=== PATIENT | male | born 1995 | race Caucasian/White ===

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

== ENCOUNTER 2017-01-10 16:44 | Emergency (ER) | payer OTHER ==
[2017-01-10 16:54] VITALS: BP 124/72
--- NOTE | 2017-01-10 17:17 | UC ---
Respiratory Complaint HPI - HPI Summary HPI Summary: Pt c/o cough, nasal congestion, sore throat X 4 weeks. - History of Current Complaint Chief Complaint: UCRespiratory Stated Complaint: CHEST/SINUS CONGESTION SORE THROAT Time Seen by Provider: 01/10/17 17:05 Hx Obtained From: Patient Onset/Duration: Gradual Onset, Lasting Weeks - 4, Still Present Timing: Constant Severity Initially: Mild Severity Currently: Mild Character: Cough: Nonproductive Aggravating Factors: Deep Breaths, Recumbent Position Alleviating Factors: Nothing Associated Signs And Symptoms: Positive: URI, Nasal Congestion - Risk Factors Pulmonary Embolism Risk Factors: Smoking Cardiac Risk Factors: Smoking Tuberculosis Risk Factors: Smoking - Allergies/Home Medications Allergies/Adverse Reactions: Allergies Allergy/AdvReac Type Severity Reaction Status Date / Time No Known Allergies Allergy Verified 01/10/17 16:54 Home Medications: Home Medications Dextromethorphan-Phenylephrine [Day Time Multi-Symptom Co 10-5-325 mg/15Ml] 1 liq PO DAILY 01/10/17 [History Confirmed 01/10/17] PMH/Surg Hx/FS Hx/Imm Hx Previously Healthy: Yes - Surgical History Surgical History: None - Family History Known Family History: Positive: Cardiac Disease - Social History Occupation: Employed Full-time Lives: With Family Alcohol Use: None Substance Use Type: Excessive Caffeine Smoking Status (MU): Light Every Day Tobacco Smoker Have You Smoked in the Last Year: Yes Cessation Counseling: Counseled 3+Min - 10 Min - Immunization History Vaccination Up to Date: Yes Review of Systems Constitutional: Negative Skin: Negative Eyes: Negative ENT: Sore Throat Respiratory: Cough Cardiovascular: Negative Gastrointestinal: Negative Genitourinary: Negative Motor: Negative Neurovascular: Negative Musculoskeletal: Negative Neurological: Negative Psychological: Negative Is Patient Immunocompromised?: No All Other Systems Reviewed And Are Negative: Yes Physical Exam Triage Information Reviewed: Yes Appearance: Well-Appearing Vital Signs: Initial Vital Signs Temp 99.6 F 01/10/17 16:51 Pulse 79 01/10/17 16:51 Resp 14 01/10/17 16:51 BP 124/72 01/10/17 16:51 Pulse Ox 99 01/10/17 16:51 Vital Signs Reviewed: Yes Eye Exam: Normal ENT Exam: Other ENT: Positive: Nasal congestion Dental Exam: Normal Neck exam: Normal Respiratory Exam: Normal Cardiovascular Exam: Normal Musculoskeletal Exam: Normal Neurological Exam: Normal Psychological Exam: Normal Skin Exam: Normal Diagnostic Evaluation - Laboratory O2 Sat by Pulse Oximetry: 99 Respiratory Course/Dx - Differential Dx/Diagnosis Differential Diagnosis/HQI/PQRI: Bronchitis, Influenza Provider Diagnoses: URI. cough Discharge - Discharge Plan Condition: Stable Disposition: HOME Prescriptions: Benzonatate CAP* [Tessalon 100 MG CAP*] 100 mg PO Q8H PRN #21 cap PRN Reason: Cough predniSONE TAB* [Deltasone TAB*] 30 mg PO DAILY #12 tab Patient Education Materials: How to Stop Smoking (ED), Cold Symptoms (ED), Acute Cough (ED) Referrals: No Primary Care Phys,NOPCP [Primary Care Provider] - If Needed
== END 2017-01-10 17:25 | disposition home or self-care (01) ==
LOC: UCCORT 16:44
DX: J06.9 Acute upper respiratory infection, unspecified (principal); R05 Cough; Z71.6 Tobacco abuse counseling; F17.200 Nicotine dependence, unspecified, uncomplicated
CPT/HCPCS: 99212; G0463

== ENCOUNTER 2017-04-30 14:38 | Emergency (ER) | payer OTHER ==
[2017-04-30 15:54] VITALS: BP 135/68
--- NOTE | 2017-04-30 16:11 | UC ---
Lower Extremity/Ankle HPI - HPI Summary HPI Summary: Pt was practicing martial arts 2 nights ago and had another athlete grab left foot and pull quickly and sharply inward. Pt had sudden onset of pain in left medial malleolous, tingling and now has tenderness in left arch of foot. - History of Current Complaint Chief Complaint: UCLowerExtremity Stated Complaint: LFT FOOT INJURY Time Seen by Provider: 04/30/17 15:43 Hx Obtained From: Patient Onset/Duration: Sudden Onset, Lasting Days, Still Present Severity Initially: Moderate Severity Currently: Moderate Pain Intensity: 7 Aggravating Factor(s): Standing, Ambulation Alleviating Factor(s): Rest, Elevation, Ice, OTC Meds Able to Bear Weight: Yes - Risk Factors Gout Risk Factors: Male DVT Risk Factors: Negative Septic Arthritis Risk Factor: Negative - Allergies/Home Medications Allergies/Adverse Reactions: Allergies Allergy/AdvReac Type Severity Reaction Status Date / Time No Known Allergies Allergy Verified 04/30/17 15:43 Home Medications: Home Medications Hydrocodone/APAP 5/300 (NF) [Vicodin 5-300 mg] 1 tab PO ONCE 04/30/17 [History Confirmed 04/30/17] PMH/Surg Hx/FS Hx/Imm Hx Previously Healthy: Yes - Surgical History Surgical History: None - Family History Known Family History: Positive: Cardiac Disease - Social History Occupation: Employed Full-time Lives: With Family Alcohol Use: None Substance Use Type: Excessive Caffeine Smoking Status (MU): Light Every Day Tobacco Smoker Amount Used/How Often: 6 CIGS PER DAY Have You Smoked in the Last Year: Yes - Immunization History Vaccination Up to Date: Yes Review of Systems Constitutional: Negative Skin: Negative Eyes: Negative ENT: Negative Respiratory: Negative Cardiovascular: Negative Gastrointestinal: Negative Genitourinary: Negative Motor: Decreased ROM - left ankle Neurovascular: Negative Musculoskeletal: Arthralgia, Decreased ROM - let ankle, Myalgia Neurological: Negative Psychological: Negative Is Patient Immunocompromised?: No All Other Systems Reviewed And Are Negative: Yes Physical Exam Triage Information Reviewed: Yes Appearance: Well-Appearing Vital Signs: Initial Vital Signs Temp 98.8 F 04/30/17 15:45 Pulse 49 04/30/17 15:45 Resp 16 04/30/17 15:45 BP 135/68 04/30/17 15:45 Pulse Ox 99 04/30/17 15:45 Vital Signs Reviewed: Yes Eye Exam: Normal ENT Exam: Normal ENT: Positive: Hearing grossly normal Dental Exam: Normal Neck exam: Normal Respiratory: Positive: No respiratory distress Musculoskeletal Exam: Other Musculoskeletal: Positive: Strength Limited @, ROM Limited @ - left medial mid foot and malleolous. Neurological Exam: Normal Psychological Exam: Normal Skin Exam: Normal Diagnostics - Laboratory Diagnostic Studies Completed/Ordered: FINDINGS: The adequately corticated bones are properly aligned. Joint spaces appear. maintained. No fracture, dislocation or focal bony abnormality is seen. IMPRESSION: Normal radiograph of the left foot. - Radiology No standard instances Radiology Interpretation Completed By: Radiologist Lower Extremity Course/Dx - Differential Dx/Diagnosis Differential Diagnosis/HQI/PQRI: Fracture (Closed), Sprain, Strain Provider Diagnoses: left foot sprain Discharge - Discharge Plan Condition: Stable Disposition: HOME Patient Education Materials: Foot Sprain (ED), R.I.C.E. Treatment (ED) Referrals: No Primary Care Phys,NOPCP [Primary Care Provider] - Jose Marrufo [Medical Doctor] - As Soon As Possible
--- NOTE | 2017-04-30 16:38 | RAD ---
INDICATION: Medial foot pain following degenerative COMPARISON: None. TECHNIQUE: 3 views of the left foot were obtained. FINDINGS: The adequately corticated bones are properly aligned. Joint spaces appear maintained. No fracture, dislocation or focal bony abnormality is seen. IMPRESSION: Normal radiograph of the left foot. If the patient's symptoms persist, follow-up imaging is recommended.
== END 2017-04-30 17:06 | disposition home or self-care (01) ==
LOC: UCCORT 14:38
DX: S93.602A Unspecified sprain of left foot, initial encounter (principal); Y93.75 Activity, martial arts; Y92.9 Unspecified place or not applicable; F17.290 Nicotine dependence, other tobacco product, uncomplicated
CPT/HCPCS: 99213; G0463

== ENCOUNTER 2017-06-24 20:29 | Emergency (ER) | payer OTHER ==
[2017-06-24 20:51] VITALS: BP 128/70
--- NOTE | 2017-06-24 21:31 | ED ---
Lower Extremity - HPI Summary HPI Summary: 22 yr old male complains of pain to the left ankle foot area after kicking and hitting the leg of another person he was sparing with. He states he has sprained the ankle before. he states it hurts to put weight on it. No other complaints. - History of Current Complaint Chief Complaint: UCLowerExtremity Stated Complaint: LEFT ANKLE INJURY Time Seen by Provider: 06/24/17 21:05 Pain Intensity: 4 - Allergies/Home Medications Allergies/Adverse Reactions: Allergies Allergy/AdvReac Type Severity Reaction Status Date / Time No Known Allergies Allergy Verified 06/24/17 20:45 Home Medications: Home Medications NK [No Home Medications Reported] 06/24/17 [History Confirmed 06/24/17] PMH/Surg Hx/FS Hx/Imm Hx - Surgical History Other Surgical History: neg Infectious Disease History: No Infectious Disease History: Denies: Traveled Outside the [place] in Last 30 Days - Family History Known Family History: Positive: Cardiac Disease - Social History Occupation: Student Lives: With Family Alcohol Use: Occasionally Substance Use Type: Reports: Excessive Caffeine, Marijuana Smoking Status (MU): Light Every Day Tobacco Smoker Type: Cigarettes Amount Used/How Often: 10-13 CIGS PER DAY Length of Time of Smoking/Using Tobacco: 1-2 YRS Have You Smoked in the Last Year: Yes Review of Systems Positive: Other - left ankle, foot pain All Other Systems Reviewed And Are Negative: Yes Physical Exam Triage Information Reviewed: Yes Vital Signs On Initial Exam: Initial Vitals Temp Pulse Resp BP Pulse Ox 98.9 F 71 20 128/70 98 06/24/17 20:46 06/24/17 20:46 06/24/17 20:46 06/24/17 20:46 06/24/17 20:46 Vital Signs Reviewed: Yes Appearance: Positive: Well-Appearing, No Pain Distress Skin: Positive: Warm, Skin Color Reflects Adequate Perfusion Head/Face: Positive: Normal Head/Face Inspection Eyes: Positive: EOMI Neck: Positive: Nontender Respiratory/Lung Sounds: Positive: Clear to Auscultation, Breath Sounds Present Cardiovascular: Positive: RRR, Pulses are Symmetrical in both Upper and Lower Extremities - intact DP and PT pulses in left foot. Abdomen Description: Negative: Distended Musculoskeletal: Positive: Other - left ankle tender over medial malleolus and over the medial foot area. No tenderness over proximal fibular head, no tenderness over the achilles tendon. No bruise and no redness, and no STS. Neurological: Positive: Sensory/Motor Intact, Alert, Oriented to Person Place, Time, CN Intact II-III Psychiatric: Positive: Normal AVPU Assessment: Alert - Radha Coma Scale Best Eye Response: 4 - Spontaneous Best Motor Response: 6 - Obeys Commands Best Verbal Response: 5 - Oriented Coma Scale Total: 15 Diagnostics - Vital Signs Vital Signs Temp Pulse Resp BP Pulse Ox 06/24/17 20:46 98.9 F 71 20 128/70 98 - Laboratory Lab Statement: Any lab studies that have been ordered have been reviewed, and results considered in the medical decision making process. - Radiology left ankle, foot Xray Interpretation: No Acute Changes Radiology Interpretation Completed By: Radiologist Lower Extremity Course/Dx - Course Course Of Treatment: 22 yr old with contusion, sprain left foot ankle. Plan Gel splint, crutches and follow up with ortho. - Diagnoses Provider Diagnoses: Left ankle sprain, Contusion of foot, left Discharge - Sign-Out/Discharge Documenting (check all that apply): Discharge/Admit/Transfer - Discharge Plan Condition: Good Disposition: HOME Referrals: No Primary Care Phys,NOPCP [Primary Care Provider] - Aime Villanueva MD [Medical Doctor] - - Billing Disposition and Condition Condition: GOOD Disposition: HOME
--- NOTE | 2017-06-24 21:35 | RAD ---
HISTORY: Left foot and ankle trauma COMPARISONS: April 30, 2017 VIEWS: 6, Frontal, lateral, and oblique views of the left ankle and left foot FINDINGS: BONE DENSITY: Normal. BONES: There is no displaced fracture. JOINTS: There is no arthropathy. ALIGNMENT: There is no dislocation. SOFT TISSUES: Unremarkable. OTHER FINDINGS: None. IMPRESSION: NO ACUTE OSSEOUS INJURY TO THE LEFT ANKLE OR LEFT FOOT. IF SYMPTOMS PERSIST, RECOMMEND REPEAT IMAGING.
== END 2017-06-24 21:53 | disposition home or self-care (01) ==
LOC: UCCORT 20:29
DX: S93.402A Sprain of unspecified ligament of left ankle, initial encounter (principal); S90.32XA Contusion of left foot, initial encounter; W50.0XXA Accidental hit or strike by another person, initial encounter; Y92.9 Unspecified place or not applicable; F17.210 Nicotine dependence, cigarettes, uncomplicated
CPT/HCPCS: 99212; G0463

== ENCOUNTER 2017-08-18 18:27 | Emergency (ER) | payer OTHER ==
[2017-08-18 18:52] VITALS: BP 143/79
[2017-08-18] MEDS ORDERED: Lidocaine 1% MPF* 2 ML VIAL INJ ONE (19:01)
--- NOTE | 2017-08-18 19:02 | UC ---
Skin Complaint HPI - HPI Summary HPI Summary: The patient is a 22-year-old male who presents here with a 3 day history of progressively worsening right hip pain redness and swelling. He has developed a swollen and tender right inguinal lymph node. He denies any fever but has had some chills. He tried to incise and drain this abscess at home. He got a scant amount of bloody discharge mixed with pus. Denies any history of skin infections in the past. He also had the onset of right sided chest pain this afternoon while at work. The pain is worse with deep inspiration. He denies any shortness of breath. The pain seems to be exacerbated with certain movements of the right hand. 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 He has not had any nausea vomiting or diarrhea. - History of Current Complaint Chief Complaint: UCSkin Time Seen by Provider: 08/18/17 18:55 Stated Complaint: SKIN COMPLAINT Hx Obtained From: Patient Onset/Duration: Gradual Onset, Lasting Days Timing: Constant Onset Severity: Mild Current Severity: Moderate Pain Intensity: 7 Pain Scale Used: 0-10 Numeric Location: Discrete Character: Swelling, Pain, Redness, Raised, Painful Aggravating Factor(s): Touch Alleviating Factor(s): Nothing Associated Signs & Symptoms: Positive: Chest Pain, Tenderness - Allergy/Home Medications Allergies/Adverse Reactions: Allergies Allergy/AdvReac Type Severity Reaction Status Date / Time No Known Allergies Allergy Verified 08/18/17 18:45 Home Medications: Home Medications NK [No Home Medications Reported] 08/18/17 [History Confirmed 08/18/17] Review of Systems Constitutional: Chills Skin: Negative Eyes: Negative ENT: Negative Respiratory: Negative Cardiovascular: Chest Pain Gastrointestinal: Negative Genitourinary: Negative Motor: Negative Neurovascular: Negative Musculoskeletal: Negative Neurological: Negative Psychological: Negative Is Patient Immunocompromised?: No All Other Systems Reviewed And Are Negative: Yes PMH/Surg Hx/FS Hx/Imm Hx Previously Healthy: Yes - Surgical History Surgical History: None Other Surgical History: neg - Family History Known Family History: Positive: Cardiac Disease - Social History Alcohol Use: Weekly Substance Use Type: None Smoking Status (MU): Light Every Day Tobacco Smoker Type: Cigarettes Amount Used/How Often: 10-13 CIGS PER DAY Length of Time of Smoking/Using Tobacco: 1-2 YRS Have You Smoked in the Last Year: Yes - Immunization History Vaccination Up to Date: Yes Physical Exam Triage Information Reviewed: Yes Appearance: Well-Appearing, No Pain Distress, Well-Nourished Vital Signs: Initial Vital Signs Temp 99 F 08/18/17 18:45 Pulse 79 08/18/17 18:45 Resp 16 08/18/17 18:45 BP 143/79 08/18/17 18:45 Pulse Ox 99 08/18/17 18:45 Vital Signs Reviewed: Yes Eyes: Positive: Conjunctiva Clear ENT: Positive: Hearing grossly normal, Uvula midline. Negative: Nasal congestion, Nasal drainage, Dental tenderness, Sinus tenderness Neck: Positive: Supple, Nontender Respiratory: Positive: Lungs clear, Normal breath sounds, No respiratory distress. Negative: Chest non-tender Cardiovascular: Positive: RRR, No Murmur Musculoskeletal: Positive: ROM Intact, No Edema Neurological Exam: Normal Neurological: Positive: Alert Psychological Exam: Normal Skin Exam: Other - abscess with overlying cellulitis right hip. Course/Dx - Course Course Of Treatment: Discussed need for higher level of care with patient. Agressive infection. may be tracking in muscle. he declines EMS tranfer. D/W Dr. Bravo [facility]---accepts pt - Diagnoses Provider Diagnoses: right hip infection. suspect MRSA. right chest wall pain Procedures - Procedure Summary Procedure Summary: Procedure: Incision and Drainage of right hip abscess procedure explained and questions answer TIme out sterile prep anesth with 2 cc 1% lidocaine incision with # 11 blade opened with hemostats no pus sterile dressing during the procedure it began apparent that the infection may be tracking deeper than I initially anticipated Discharge - Sign-Out/Discharge Documenting (check all that apply): Discharge/Admit/Transfer - Discharge Plan Condition: Stable Disposition: TRANS HIGHER LVL OF CARE FAC Patient Education Materials: MRSA (Methicillin-Resistant Staphylococcus Aureus ) (ED), Chest Wall Pain (ED) Referrals: No Primary Care Phys,NOPCP [Primary Care Provider] - Additional Instructions: you were given 2 BACTRIM DS here you were also given 600mg of motrin I suspect this is a MRSA infection I attempted to drain some pus but was not successful. I am worried that the infection is tracking deeper and not just a superficial abscess You need to go directly to the [facility] ER to have this addressed tonight I spoke to Dr. Bravo - Billing Disposition and Condition Condition: STABLE Disposition: Trans Higher Lvl of Care Fac Images Front/Back of Body, Lg (Bates): 1 - tender
[2017-08-18] MEDS ORDERED: Ibuprofen TAB* 600 MG PO ONE (19:39)
[2017-08-18] MEDS ORDERED: Sulfamethox/Trimethoprim DS 800/160* TAB PO ONE (19:39)
--- NOTE | 2017-08-18 19:40 | RAD ---
INDICATION: Right-sided chest pain COMPARISON: None TECHNIQUE: PA and lateral dual-energy views were obtained. FINDINGS: Bones/Soft Tissues: There are no acute bony findings. Cardiomediastinal: The cardiomediastinal silhouette is normal. Lungs: There are no infiltrates. There is no pneumothorax. Pleura: There are no pleural effusions. Other: None IMPRESSION: NO ACTIVE DISEASE.
== END 2017-08-18 19:57 | disposition short-term general hospital (02) ==
LOC: UCCORT 18:27
DX: F17.210 Nicotine dependence, cigarettes, uncomplicated (principal); L02.415 Cutaneous abscess of right lower limb
CPT/HCPCS: 10060; 71046; 99212; A9270-GY; G0463

== ENCOUNTER 2019-02-12 16:25 | Emergency (ER) | payer OTHER ==
[2019-02-12 16:37] VITALS: BP 121/77
--- NOTE | 2019-02-12 16:48 | UC ---
FLU HPI - HPI Summary HPI Summary: 24-year-old male presents with onset of general malaise, body aches, shaking chills, nasal congestion, runny nose, sore throat, and a dry cough yesterday. No measured fever. Denies ear pain, dysphagia, chest pain, shortness of breath , abdominal pain, nausea, vomiting, or diarrhea. - History of Current Complaint Chief Complaint: UCGeneralIllness Stated Complaint: FLU SYMPTOMS Time Seen by Provider: 02/12/19 16:36 Hx Obtained From: Patient Pain Intensity: 4 - Allergy/Home Medications Allergies/Adverse Reactions: Allergies Allergy/AdvReac Type Severity Reaction Status Date / Time No Known Allergies Allergy Verified 02/12/19 16:33 Home Medications: Home Medications Aspirin/Acetaminophen/Caffeine [Excedrin Migraine Caplet] 1 tab PO ONCE [History Confirmed 02/12/19] Sertraline* [Zoloft*] 50 mg PO DAILY 02/12/19 [History Confirmed 02/12/19] PMH/Surg Hx/FS Hx/Imm Hx Previously Healthy: Yes - Denies significant PMH Psychological History: Depression - Surgical History Surgical History: None Other Surgical History: neg - Family History Known Family History: Positive: Cardiac Disease - Social History Occupation: Employed Full-time Lives: With Family Alcohol Use: None Substance Use Type: Marijuana Smoking Status (MU): Current Some Day Smoker Type: Cigarettes Amount Used/How Often: 10-13 CIGS PER DAY Length of Time of Smoking/Using Tobacco: 1-2 YRS Have You Smoked in the Last Year: Yes - Immunization History Vaccination Up to Date: Yes Review of Systems All Other Systems Reviewed And Are Negative: Yes Constitutional: Positive: Chills, Fatigue Skin: Negative: Rash Eyes: Negative: Drainage, Eye Redness ENT: Positive: Sore Throat, Nasal Discharge, Sinus Congestion. Negative: Sinus Pain/Tenderness Respiratory: Positive: Cough. Negative: Shortness Of Breath Cardiovascular: Negative: Palpitations, Chest Pain Gastrointestinal: Negative: Abdominal Pain, Vomiting, Diarrhea, Nausea Genitourinary: Positive: Negative Musculoskeletal: Positive: Myalgia Neurological: Positive: Negative Is Patient Immunocompromised?: No Physical Exam - Summary Physical Exam Summary: GENERAL APPEARANCE: Well developed, well nourished, alert and cooperative, and appears to be in no acute distress. EYES: Conjunctiva clear. No drainage. EARS: External auditory canals and tympanic membranes clear, hearing grossly intact. NOSE: Moderate nasal congestion. Clear nasal discharge. THROAT: Pharyngeal erythema. No tonsilar inflammation, swelling, exudate, or lesions. Uvula midline. NECK: Neck supple, non-tender without lymphadenopathy. CARDIAC: Normal S1 and S2. No S3, S4 or murmurs. Rhythm is regular. There is no peripheral edema, cyanosis or pallor. Extremities are warm and well perfused. Capillary refill is less than 2 seconds. Peripheral pulses intact. LUNGS: Clear to auscultation without rales, rhonchi, wheezing or diminished breath sounds. Dry, non-productive cough. ABDOMEN: Positive bowel sounds. Soft, nondistended, nontender. No guarding or rebound. No masses or hepatosplenomegally. MUSKULOSKELETAL: ROM intact to all extremities. No joint erythema or tenderness. Normal muscular development. Normal gait. SKIN: Skin normal color, texture and turgor with no lesions or eruptions. Triage Information Reviewed: Yes Vital Signs: Initial Vital Signs Temp 97.8 F 02/12/19 16:34 Pulse 66 02/12/19 16:34 Resp 17 02/12/19 16:34 BP 121/77 02/12/19 16:34 Pulse Ox 98 02/12/19 16:34 Vital Signs Reviewed: Yes Flu Course/Dx - Course Course Of Treatment: 24-year-old male presents with onset of general malaise, body aches, shaking chills, nasal congestion, runny nose, sore throat, and a dry cough yesterday. No measured fever. Denies ear pain, dysphagia, chest pain, shortness of breath , abdominal pain, nausea, vomiting, or diarrhea. Afebrile. Vital signs stable. Patient had moderate nasal congestion, clear nasal discharge, pharyngeal erythema without tonsillar swelling or exudate, no cervical lymphadenopathy, clear bilateral breath sounds, dry nonproductive cough, and otherwise unremarkable exam. Rapid strep test was positive for influenza A. Reviewed results with the patient. Discussed the risks and benefits of treating with Tamiflu and patient is electing to start at this time. He was given the first dose in the clinic. Additionally recommended symptomatic treatment. He is to follow-up with his primary care provider in 5-7 days if symptoms are not improving. Anticipatory guidance and warning symptoms are reviewed with the patient. Verbalizes understanding and agrees with care. - Differential Dx/Diagnosis Differential Diagnosis/HQI/PQRI: Bronchitis, Influenza, Pneumonia, Upper Respiratory Infection Provider Diagnosis: Influenza A Discharge ED - Sign-Out/Discharge Documenting (check all that apply): Patient Departure All imaging exams completed and their final reports reviewed: No Studies - Discharge Plan Condition: Stable Disposition: HOME Prescriptions: Benzonatate CAP* [Tessalon 100 MG CAP*] 100 mg PO TID PRN #21 cap PRN Reason: Cough Oseltamivir SUSP 75 MG dose* [Tamiflu SUSP 75 MG dose*] 75 mg PO BID 4 Days #8 oral.syrin Patient Education Materials: Influenza (ED) Referrals: Venice Dyer MD [Primary Care Provider] - 5 Days (Follow up in 5-7 days if no improvement in symptoms.) Additional Instructions: Your flu test in the clinic today was positive for influenza A. Start Tamiflu 1 capsule twice a day for 5 days. You were given the first dose in the clinic. Get plenty of rest. Drink plenty of fluids to avoid dehydration especially if you are running any fever. Take over the counter acetaminophen (Tylenol) or ibuprofen (Advil, Motrin) according to directions as needed for pain or fever. Take Tessalon Perles 1 cap every 8 hours as needed for cough. Use salt water gargles several times a day if you have a sore throat. You may also use Chloraseptic spray or Cepacol lonzenges according to directions which contain a numbing medication and can provide some temporary relief from your sore throat. Follow up with your primary care provider in 5-7 days if symptoms persist. Seek immediate medical attention in the emergency room if you have fever greater than 100.5 F despite taking acetaminophen or ibuprofen, have chest pain , difficulty breathing, are unable to swallow, or have any worsening of symptoms. - Billing Disposition and Condition Condition: STABLE Disposition: Home
[2019-02-12 16:50] LABS: Influenza A Molecular POSITIVE (Negative)
[2019-02-12] MEDS ORDERED: Oseltamivir CAP* 75 MG CAP PO ONE (16:58)
== END 2019-02-12 17:12 | disposition home or self-care (01) ==
LOC: UCCORT 16:25
DX: J11.1 Influenza due to unidentified influenza virus with other respiratory manifestations (principal); Z79.82 Long term (current) use of aspirin; F32.9 Major depressive disorder, single episode, unspecified; Z79.899 Other long term (current) drug therapy; F17.210 Nicotine dependence, cigarettes, uncomplicated; M79.10 Myalgia, unspecified site
CPT/HCPCS: 99212; A9270-GY; G0463